=== PATIENT | female | born 1960 | race Caucasian/White ===

== ENCOUNTER 2017-06-06 07:51 | Outpatient (CLI) | payer BC ==
[~2017-06-06] VITALS: Ht 162.6 cm; Wt 98.2 kg
--- NOTE | ~2017-06-06 | HEMODYNAMI ---
PATIENT:CARLI SMITH MEDICAL RECORD: [id number] : 62 LOCATION:D.CAT ADMISSION DATE: 06/06/17 Generatedon:06/06/201710:23 Patient name: CARLI SMITH Patient #: [id number] SSN: : Date of study: 06/06/2017 Page: Of Hemodynamic Procedure Report Patient Data Patient Demographics Procedure consent was obtained First Name: CARLI Gender: Female Last Name: SARAH : 1960 [facility] Initial: YUKI Age: 57 year(s) Patient #: [id number] Race: Unknown Additional ID: [id number] Contact details [address]: [address] [place] [address] State: [place] City: [place] Zip code: [address] Past Medical History Allergies Allergen Reaction Date Comments Reported Other allergy 06/06/2017 Lisnopril Admission Admission Data Admission Date: 06/06/2017 Admission Time: 7:51 Height (in.): 64 BSA: 2.02 (m2) Height (cm.): 162.56 BMI: 37.08 (kg/m2) Weight (lbs.): 216 Weight (kg.): 97.98 Lab Results Lab Result Date: 06/06/2017 Lab Result Time: 8:28 Biochemistry Name Units Result Min Max BUN mg/dl 12 --(-*--)-- 7 18 Creatinine mg/dl 0.9 --(-*--)-- 0.6 1.3 CBC Name Units Result Min Max Hematocrit % 34.6 *-(----)-- 42 54 Hemoglobin g/dl 11.2 *-(----)-- 13.5 17.5 Procedure Procedure Types Cath Procedure Diagnostic Procedure LHC LH w/Coronaries Miscellaneous Procedures Moderate Sedation up to 15 minutes Peripheral Cath Diagnostic Procedure Abd/Extremity Renal Bilat Renal Arteriogram Procedure Description Procedure Date Procedure Date: 06/06/2017 Procedure Start Time: 10:10 Procedure End Time: 10:22 Procedure Staff Name Function Contreras Alvarez MD Performing Physician Kendal Kaplan RN Nurse Gaurav Albert RT Monitor Naila Cabrales RT Scrub Procedure Data Cath Procedure Fluoroscopy Diagnostic fluoroscopy Total fluoroscopy Time: 3.1 time: 3.1 min min Diagnostic fluoroscopy Total fluoroscopy dose: 795 dose: 795 mGy mGy Contrast Material Contrast Material Type Amount (ml) Isovue 300 70 Entry Location Entry Primary Successful Side Size Upsize Upsize Entry Closure Pelayo ccessful Closure Location (Fr) 1 (Fr) 2 (Fr) Remarks Device Remarks Radial Right 6 Fr Mechanical artery Short Compression Estimated blood loss: 5 ml Diagnostic catheters Device Type Used For End Catheter Placement Cordis Aqua 5Fr Underwood Procedure 125cm catheter Diagnostic Terumo 5Fr Procedure [place] Furnace 110cm catheter Procedure Complications No complications Procedure Medications Medication Administration Route Dosage Oxygen NC 2 l/min Lidocaine 2% added to field 20 Heparin Flush Bag added to field 2 bags (1000units/500ml NS) Versed I.V. 1 mg Fentanyl I.V. 50 mcg Lopressor I.V. 5 mg Radial Cocktail I.A. 1 syringe (Verapomil 2mg/Nitro 400mcg/Heparin 1500units) Lopressor I.V. 5 mg Versed I.V. 1 mg Fentanyl I.V. 50 mcg Hemodynamics Rest BSA: 2.02 (m2) HGB: 11.2 (g/dl) O2 Consumption: Estimated: 230.85 (ml/min) O2 Co nsumption indexed: Estimated:114.28 (ml/min/m) Heart Rate: 118 (bpm) Pressure Samples Time Site Value (mmHg) Purpose Heart Use Rate(bpm) 10:15 LV 79/44,27 Snapshot 127 Snapshots Pre Cath Intra NCS Post Cath Vital Signs Time Heart Resp SPO2 NIBP (mmHg) Rhythm Pain Sedation Rate (ipm) (%) Status Level (bpm) 10:01:22 94 23 97 118/96(103) NSR 0 (11) 10(A) , No pain 10:05:28 109 24 96 116/94(104) NSR 0 (11) 10(A) , No pain 10:09:34 121 19 94 108/94(106) NSR 0 (11) 10(A) , No pain 10:13:42 117 20 93 103/65(82) NSR 0 (11) 9(A) , No pain 10:17:47 115 19 93 108/76(105) NSR 0 (11) 9(A) , No pain 10:21:55 107 22 96 109/81(96) NSR 0 (11) 10(A) , No pain Medications Time Medication Route Dose Verified Delivered Reason Notes Effectiveness by by 9:58:57 Oxygen NC 2 l/min Contreras Edmonds used for Antonio Kaplan RN procedure 9:59:04 Lidocaine 2% added 20ml Contreras Chairez for local to vial Antonio Alvarez MD anesthetic field 9:59:11 Heparin Flush added 2 bags Contreras Chairez used for Bag to Antonio Alvarez MD procedure (1000units/500ml field NS) 10:05:27 Versed I.V. 1 mg Contreras Edmonds for sedation Antonio Kaplan RN 10:05:32 Fentanyl I.V. 50 mcg Contreras Edmonds for sedation Antonio Kaplan RN 10:08:20 Lopressor I.V. 5 mg Contreras Edmonds Per Antonio Kaplan RN physician 10:12:56 Radial Cocktail I.A. 1 Contreras Chairez for (Verapomil syringe Antonio Alvarez MD vasodilation 2mg/Nitro 400mcg/Heparin 1500units) 10:13:05 Lopressor I.V. 5 mg Contreras Edmonds Per Antonio Kaplan RN physician 10:17:27 Versed I.V. 1 mg Contreras Edmonds for sedation Antonio Kaplan RN 10:17:30 Fentanyl I.V. 50 mcg Contreras Edmonds for sedation Antonio Kaplan RN Procedure Log Time Note 9:36:10 Patient Height : 162.56 cm 9:36:14 Patient Weight : 97.98 kg 9:40:38 Diagnostic Cath status Elective 9:40:40 Kendal Kaplan RN sent for patient. Start room use. 9:40:41 Time tracking: Regular hours 9:40:46 Plan of Care:Hemodynamics will remain stable., Cardiac rhythm will remain stable., Comfort level will be maintained., Respiratory function will remain adequate., Patient/ family verbilizes understanding of procedure., Procedure tolerated without complication., Recovers from procedure without complications.. 9:45:56 Patient received from Pre/Post Procedure Room to [facility] 2 Alert and oriented. Tansferred to table in Supine position. 9:58:57 Oxygen 2 l/min NC was administered by Kendal Kaplan RN; used for procedure; 9:59:04 Lidocaine 2% 20ml vial added to field was administered by Contreras Alvarez MD; for local anesthetic; 9:59:11 Heparin Flush Bag (1000units/500ml NS) 2 bags added to field was administered by Contreras Alvarez MD; used for procedure; 10:00:15 Warm blankets applied, and thomas hugger turned on for patient comfort. 10:00:16 Correct patient and procedure confirmed by team. 10:00:17 Signed procedure consent form obtained from patient. 10:00:18 ECG and BP/O2 sat monitors applied to patient. 10:00:19 Vital chart was started 10:00:32 H&P Date Dictated: 06/05/2017 Within 30 days and on chart., H&P Addendum completed by physician on day of procedure. (MUST COMPLETE FOR ALL OUTPATIENTS). 10:00:36 Baseline sample Acquired. 10:00:43 Rhythm: sinus tachycardia 10:00:44 Full Disclosure recording started 10:00:46 Pre-procedure instructions explained to patient. 10:00:47 Pre-op teaching completed and patient verbalized understanding. 10:00:49 Family in waiting room. 10:00:51 Patient NPO since Midnight. 10:01:06 Patient allergic to Other allergyLisnopril 10:01:08 Is the patient allergic to Iodine/contrast media? No. 10:01:10 Is patient on blood thinner?Yes 10:01:12 ACC The patient was administered the following blood thiners within the last 24 hours: ACCPlavix 10:01:15 Patient diabetic? No. 10:01:23 Previous problem with sedation/anesthesia? No ? 10:01:25 Snore? Yes 10:01:25 Sleep apnea? Yes 10:01:26 Deviated septum? No 10:01:27 Opens mouth fully? Yes 10:01:28 Sticks out tongue? Yes 10:01:40 Airway obstruction? Yes Possible Asthma 10:01:45 Dentures? No ? 10:01:49 Modified George's test Ulnar < 7 seconds 10:01:51 Patient pain scale 0/10 ?. 10:01:55 IV patent on arrival in left hand with 0.9% NaCl at KVO. 10:03:24 Lab Result : BUN 12 mg/dl 10::24 Lab Result : Creatinine 0.9 mg/dl 10::24 Lab Result : Hemoglobin 11.2 g/dl 10::24 Lab Result : Hematocrit 34.6 % 10:: Lab results completed and on chart. 10:03:29 Right Radial & Right Groin area was prepped with chlora-prep and draped in sterile fashion 10:03:30 Alarms reviewed by R. N. 10::30 Sharps counted by scrub and verified by R.N. 10:03:40 Use device set Radial Dx 10:03:41 MBrace Wrist Support opened to sterile field. 10:03:42 Tegaderm 4 x 4 opened to sterile field. 10:03:44 Acist Manifold opened to sterile field. 10:03:45 Acist Hand Control opened to sterile field. 10:03:47 Acist Syringe opened to sterile field. 10:03:47 Medline Cath Pack opened to sterile field. 10:03:48 Bag Decanter opened to sterile field. 10:03:49 Terumo 6Fr Slender Glidesheath opened to sterile field. 10:03:49 St Jonathan 260cm J .035 wire opened to sterile field. 10:04:03 Physician arrived 10:04:04 --------ALL STOP TIME OUT------ 10:04:10 Final Timeout: patient, procedure, and site verified with staff and physician. All members of the team are in agreement. 10:04:12 Right Radial & Right Groin site verified by team. 10:04:15 Physical assessment completed. ASA score P 2 - A patient with mild systemic disease as per Contreras Alvarez MD. 10:04:18 Sedation plan: IV Moderate Sedation Versed, Fentanyl 10:05:27 Versed 1 mg I.V. was administered by Kendal Kaplan RN; for sedation; 10:05:32 Fentanyl 50 mcg I.V. was administered by Kendal Kaplan RN; for sedation; 10:08:20 Lopressor 5 mg I.V. was administered by Kendal Kaplan RN; Per physician; 10:09:01 Zero performed for pressure channel P1 10:09:04 Zero performed for pressure channel P1 10:10:08 Procedure started. 10:10:13 Local anesthetic to right radial artery with Lidocaine 2% by Contreras Alvarez MD.INITIAL ACCESS ONLY 10:11:21 A 6 Fr Short sheath was inserted into the Right Radial artery 10:12:56 Radial Cocktail (Verapomil 2mg/Nitro 400mcg/Heparin 1500units) 1 syringe I.A. was administered by Contreras Alvarez MD; for vasodilation; 10:13:05 Lopressor 5 mg I.V. was administered by Kendal Kaplan RN; Per physician; 10:13:05 A Cordis Aqua 5Fr Underwood 125cm catheter was advanced over the wire and used for Procedure. 10:13:32 Left renal angiography performed. 10:13:41 Right renal angiography performed. 10:14:37 Catheter exchanged over wire. 10:14:45 A Diagnostic Terumo 5Fr [place]ace 110cm catheter was advanced over the wire and used for Procedure. 10:15:11 LV gram done using RO 10:15:16 Injector settings: Ml/sec: 5, Volume: 15, 10:15:20 EF : 40 % 10:15:25 RCA angiography performed. 10:16:15 Catheter exchanged over wire. 10:16:55 Cordis 6FR XBLAD 3.5 guide catheter opened to sterile field. 10:17:04 6 Fr XBLAD 3.5 guide catheter was inserted over the wire 10:17:27 Versed 1 mg I.V. was administered by Kendal Kaplan RN; for sedation; 10:17:30 Fentanyl 50 mcg I.V. was administered by Kendal Kaplan RN; for sedation; 10:18:18 LCA angiography performed. 10:19:05 Catheter removed. 10:19:09 Terumo TR Band Standard opened to sterile field. 10:19:26 Sheath removed intact; hemostasis achieved with Mechanical Compression to the Right Radial artery. 10:19:27 Procedure ended.(Physican Out) 10:20:44 Fluoroscopy time 03.10 minutes. 10:20:49 Flurop Dose total: 795 10:20:49 Fluoroscopy dose: 795 mGy 10:20:52 Contrast amount:Isovue 300 70ml. 10:20:53 Sharps counted by scrub and verified by R.N. 10:20:56 TR band inflated with 12cc of air. 10:20:57 Insertion/operative site no bleeding no hematoma. 10:21:02 Post right radial artery:stable, soft, clean and dry 10:21:04 Post Procedure Pulses reassessed and unchanged 10:21:38 Post procedure rhythm: unchanged. 10:21:40 Estimated blood loss: 5 ml 10:21:41 Post procedure instruction explained to patient.Patient verbalizes understanding. 10:21:42 Patient needs reinforcement of post procedure teaching. 10:22:17 Procedure type changed to Cath procedure, Diagnostic procedure, LHC, LHC w/Coronaries, Miscellaneous Procedures, Moderate Sedation up to 15 minutes, Peripheral Cath Diagnostic Procedure, Abd/Extremity, Renal, Bilat Renal Arteriogram 10:22:42 Procedure and supply charges have been captured, reviewed, submitted and are correct. 10:22:46 Procedure Complication : No complications 10:22:48 Vital chart was stopped 10:22:49 See physician's report for complete and final results. 10:22:50 Report given to Pre/Post Procedure Room. 10:22:51 Patient transfered to Pre/Post Procedure Room with Stretcher. 10:22:53 Procedure ended. 10:22:53 Full Disclosure recording stopped 10:23:01 End room use (Document Last) Device Usage Item Name Manufacture Quantity Catalog Hospital Part Current Minimal Lot# / Number Charge Number Stock Stock Serial# Code Banner Advanced 1 140-0250-00 [id number] 5 Wrist Vascular Support Dynamics Tegaderm 4 3M 1 [id number] [id number] [id number] 5 x 4 Acist Acist 1 09412 992248 482369 983599 5 Manifold [employer] Inc Acist Hand Acist 1 90353 929857 715704 816647 5 Control Medical Systems Inc Acist Acist 1 12836 542206 010893 792256 20 Syringe Medical Systems Inc Medline Cardinal 1 [id number] [id number] 51773 [id number] 5 Cath Pack Health Bag Microtek 1 2002S 092486 08391 828838 5 Decanter [employer] Inc. Terumo 6Fr Terumo 1 [id number] 020937 216722 119804 [address] Jonathan 1 [id number] 843617 108584 849449 30 260cm J .035 wire Cordis Aqua Cardinal 1 [id number] 608092 805030 023593 5 5Fr [facility] Underwood 125cm catheter Diagnostic Terumo 1 [id number] [id number] 459986 466640 5 Terumo 5Fr [place] 110cm catheter Cordis 6FR Cardinal 1 [id number] 736132 468819 468752 10 XBLAD 3.5 Health guide catheter Terumo TR Terumo 1 [id number] 714544 315936 737143 40 Band Standard Signature Audit [place] Stage Time Signature Unsigned Intra-Procedure 06/06/2017 Gaurav Albert 10:23:21 AM RT(R) Signatures Monitor : Gaurav Albert RT Signature : Date : Time : [place] [place] [address]
[~2017-06-06 07:51] MED LIST: EFFEXOR XR150 MG PO; EZFE 200200 MG PO; LEVOXYL50 MCG PO; LIPITOR20 MG PO; NORVASC10 MG PO; PRILOSEC20 MG PO; VITAMIN D31000 UNIT PO; ZESTORETIC 20/21 TAB PO
[2017-06-06] MEDS ORDERED: NORVASC10 MG PO (08:18)
[2017-06-06] MEDS ORDERED: BETAPACE 80 MG80 MG PO (08:19)
[2017-06-06] MEDS ORDERED: LOSARTAN POTASS25 MG PO (08:20)
[2017-06-06] MEDS ORDERED: TOPROL XL100 MG PO (08:20)
[2017-06-06] MEDS ORDERED: FUROSEMIDE40 MG PO (08:21)
[2017-06-06] MEDS ORDERED: SYMBICORT 80-10.2 GM INH (08:22)
[2017-06-06] MEDS ORDERED: PLAVIX75 MG PO (08:22)
[2017-06-06 08:24] VITALS: BP 121/89; Ht 162.6 cm; Wt 98.2 kg
[2017-06-06 08:33] LABS: BASOPHILS 0.2 % (0-2); EOSINOPHILS 1.8 % (0-7); HEMATOCRIT 34.6 % (36.0-48.0); HEMOGLOBIN 11.2 g/dL (12-16); IMMATURE GRANULOCYTES 0.2 % (0-5); LYMPHOCYTES 16.7 % (15-50); MCH 31.5 pg (26.0-34.0); MCHC 32.4 g/dL (31.0-37.0); MCV 97.5 fL (80.0-100.0); MEAN PLATELET VOLUME 10.5 fL (7.4-10.4); NEUTROPHILS 74.1 % (40-80); RBC 3.55 10x6/uL (4.00-5.40)
[2017-06-06 08:36] LABS: PLATELET COUNT 295 10x3/uL (130-400)
[2017-06-06 09:20] LABS: CALC OSMOLALITY 283 mosm/kg (275-300); CALCIUM 9.2 mg/dL (8.5-10.1); CHLORIDE - SERUM 106 mmol/L (98-107); CKMB 0.5 U/L (0.0-3.6); CREATINE KINASE 46 UL (21-215); CREATININE - SERUM 0.9 mg/dL (0.6-1.3); GLUCOSE 121 mg/dL (74-106); POTASSIUM - SERUM 3.5 mmol/L (3.5-5.1); SODIUM 142 mmol/L (136-145); TROPONIN-I < 0.017 ng/mL (0.000-0.060); UREA NITROGEN 12 mg/dL (7-18); eGFR NON AFRICAN AMERICAN 69 mL/min (90-120)
--- NOTE | 2017-06-06 10:59 | NUR ---
1030 RECEIVED PT FROM [employer], PT IS ALERT, DENIES ANY C/O CHEST PAIN. ATRIAL FIBRILLATION, RATE IS 130. TR BAND TO RIGHT WRIST IS CDI, NO BLEEDING OR HEMATOMA NOTED. WRIST IMMOBILIZER IS IN PLACE. FINGERS WARM AND CAP REFILL IS BRISK. PT DENIES ANY NV DEFICIT. AT BEDSIDE. CALL LIGHT IN REACH. 1045 PO FLUIDS AND SANDWICH SERVED. PT DENIES ANY C/O. CATH SITE STABLE WITH NO BLEEDING OR HEMATOMA NOTED.
--- NOTE | 2017-06-06 11:15 | NUR ---
1115 PT HAS NAOMY SANDWICH WITH NO C/O NAUSEA. VSS. AT BEDSIDE. PT DENIES NEEDS AT THIS TIME.
--- NOTE | 2017-06-06 11:30 | NUR ---
1130 TR BAND DEFLATION BEGUN WITH 3 CC OF AIR REMOVED AND NO BLEEDING NOTED. PT DENIES ANY C/O AT THIS TIME. VSS. AT BEDSIDE.
[2017-06-06] MEDS ORDERED: XARELTO20 MG PO (12:20)
--- NOTE | 2017-06-06 12:46 | NUR ---
1215 TR BAND DEFLATION COMPLETE WITH NO BLEEDING OR HEMATOMA NOTED. 2X2 AND TEGADERM APPLIED. IV DC'D WITH CATH INTACT. PT DRESSING FOR DC. 1235 REVIEWED DC INSTRUCTIONS WITH PT AND WHO VERBALIZE UNDERSTANDING. OFFICE DELIVERED XARALTO 20MG TAB SAMPLES TO PT. PT ESCORTED TO THE BATHROOM AND VOIDED QS, ESCORTED TO PRIVATE AUTO VIA WC BY NURSE WTIH DRIVING HER HOME.
--- NOTE | 2017-06-09 13:52 | OP ---
PATIENT NAME: CARLI SMITH MEDICAL RECORD: [id number] :62 LOCATION:D.CAT ADMISSION DATE: SURGEON: ADEN LAMBERT MD DATE OF OPERATION: 06/06/2017 PROCEDURES: 1. Left heart catheterization. 2. Selective coronary angiography. 3. Left ventriculogram. 4. Bilateral selective renal angiography. INDICATIONS: Angina, atrial fibrillation and hypertension. PROCEDURE IN DETAIL: After informed consent was obtained and after detailed explanation of risks, benefits as well as alternative therapies, the patient elected to proceed with angiogram and angiography. The right radial area was prepped and draped in normal sterile fashion. Right radial artery was cannulated via modified Seldinger technique with placement of 5-Malaysian sheath. All catheters exchanged through this sheath. FINDINGS: Left ventriculogram was performed in the standard 30-degree RO view, reveals mild global hypokinesis, ejection fraction 40%. SELECTIVE CORONARY ANGIOGRAPHY: Left main, left anterior descending, left circumflex and right coronary are all smooth-walled vessels with no angiographic evidence of coronary disease. Each renal artery was sub-selectively engaged. 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 No renal artery stenosis. The left renal artery is as well a solitary artery off the aorta with no significant pressure damping. No renal artery stenosis. OVERALL IMPRESSION: No evidence of ischemic heart disease, no evidence of renal artery stenosis. Standard medical management on treatment of the atrial fibrillation and dysrhythmia. TRANSINT:[id number] Voice Confirmation ID: [id number] DOCUMENT ID: [id number] ADEN LAMBERT MD at 1352 CC: [id number] DICTATION DATE: 06/06/17 1023 LAND CLEARER: 06/06/17 1139 DEP CLI 06/06/17 [place] [id number]
== END 2017-06-06 12:35 | disposition home or self-care (01) ==
LOC: D.CATH 07:51
PROVIDERS: Internal Medicine Interventional Cardiology
DX: I20.9 Angina pectoris, unspecified (principal); I48.91 Unspecified atrial fibrillation; I10 Essential (primary) hypertension; R06.02 Shortness of breath; Z01.812 Encounter for preprocedural laboratory examination

== ENCOUNTER 2017-06-27 15:11 | Observation (INO) | payer BC ==
[~2017-06-27] VITALS: Ht 162.6 cm; Wt 98.2 kg
[~2017-06-27 15:11] MED LIST changes: +BETAPACE 80 MG80 MG PO; +FUROSEMIDE40 MG PO; +LOSARTAN POTASS25 MG PO; +PLAVIX75 MG PO; +SYMBICORT 80-10.2 GM INH; +TOPROL XL100 MG PO; +XARELTO20 MG PO
[2017-06-27 16:29] VITALS: Ht 162.6 cm; Wt 98.2 kg
[2017-06-28] MEDS ORDERED: BETAPACE 120 M120 MG PO (09:05)
[2017-06-28 09:19] VITALS: BP 125/79
== END 2017-06-28 11:51 | disposition home or self-care (01) ==
LOC: D.M2 15:11 → OBSVTIME 15:38 → D.M2 06-28 11:51
PROVIDERS: ADMIT Internal Medicine Interventional Cardiology
DX: I48.91 Unspecified atrial fibrillation (principal); J81.1 Chronic pulmonary edema